=== PATIENT | female | born 1975 | race Caucasian/White ===

== ENCOUNTER 2019-01-09 06:04 | Day surgery (SDC) | payer MEDICAID ==
[2019-01-09 06:57] LABS: ADD MAN DIFF? NO
[2019-01-09 06:58] LABS: WHITE BLOOD COUNT 8.8 10^3/ul (4.8-10.8)
[2019-01-09 06:58] LABS: ABNORMAL IP MESSAGE 1; BASOPHILS % 0.5 % (0.0-2.0); EOSINOPHILS # 0.1 10^3/ul (0.0-0.5); EOSINOPHILS % 1.6 % (0.0-7.0); HEMATOCRIT 27.7 % (37.0-47.0); HEMOGLOBIN 7.9 g/dl (12.0-16.0); LYMPHOCYTES # 3.2 10^3/ul (0.8-2.9); LYMPHOCYTES % 36.4 % (15.0-51.0); MEAN CORPUSCULAR HEMOGLOBIN 18.9 pg (29.0-33.0); MEAN CORPUSCULAR HGB CONC 28.5 g/dl (32.0-37.0); MEAN CORPUSCULAR VOLUME 66.3 fl (82.0-101.0); MEAN PLATELET VOLUME 10.8 fl (7.4-10.4); MONOCYTE # 0.4 10^3/ul (0.3-0.9); MONOCYTES % 4.9 % (0.0-11.0); NEUTROPHILS % 56.4 % (39.0-77.0); PLATELET COUNT 325 10^3/UL (140-415); RED BLOOD COUNT 4.18 10^6/ul (4.20-5.40)
[2019-01-09] MEDS ORDERED: DESFLURANE 15 MIN (07:00)
[2019-01-09 07:05] LABS: POSITIVE DIFF @See below
[2019-01-09 07:09] LABS: HOLD TRANSMISSIONS 1
[2019-01-09] MEDS ORDERED: PROPOFOL 20 ML (07:27)
[2019-01-09] MEDS ORDERED: LIDOCAINE 2% (SDV) 5 ML INJ (07:27)
[2019-01-09] MEDS ORDERED: ROCURONIUM 50 MG INJ (07:27)
[2019-01-09] MEDS ORDERED: MIDAZOLAM 1 MG/ML 2 ML INJ (07:27)
[2019-01-09] MEDS ORDERED: CEFAZOLIN 1 GM INJ (07:27)
[2019-01-09] MEDS ORDERED: FENTAnyl 50 MCG/ML VIAL ×2 (07:28→09:09)
[2019-01-09] MEDS ORDERED: HYDROmorphONE 1 MG/5 ML IV SYRINGE IV ×2 (07:30)
[2019-01-09] MEDS ORDERED: OXYCODONE/ACETAMINOPHEN (5/325) TAB PO ×2 (07:30)
[2019-01-09] MEDS ORDERED: MEPERIDINE 25 MG INJ IV (07:30)
[2019-01-09] MEDS ORDERED: ONDANSETRON 4 MG INJ IV (07:30)
[2019-01-09] MEDS ORDERED: FAMOTIDINE 20 MG INJ (07:32)
[2019-01-09] MEDS ORDERED: METOCLOPRAMIDE 10 MG INJ (07:32)
[2019-01-09] MEDS ORDERED: DEXAMETHASONE 4 MG/ML 5 ML INJ (07:32)
[2019-01-09] MEDS ORDERED: ONDANSETRON 4 MG INJ (07:32)
[2019-01-09] MEDS ORDERED: NEOSTIGMINE 3 MG/3 ML SYRINGE (08:24)
[2019-01-09] MEDS ORDERED: GLYCOPYRROLATE 0.4 MG INJ (08:24)
[2019-01-09] MEDS: HYDROmorphONE 1 MG/5 ML IV SYRINGE IV (09:39)
== END 2019-01-09 11:10 | disposition home or self-care (01) ==
LOC: SDS 06:04
DX: Z30.2 Encounter for sterilization (principal)
CPT/HCPCS: 58670; 84702; 85025; 86850; 86900; 86901